=== PATIENT | female | born 1975 | race Caucasian/White ===

== ENCOUNTER 2025-06-09 09:12 | Emergency (ER) | payer OTHER, SELFPAY ==
--- NOTE | ~2025-06-09 | US_ITS ---
Duplex Sonography of the right extremity: Indication: Pain Findings: Sagittal and transverse B-mode images as well as color-flow imaging were performed on the r ight femoral and popliteal veins. B-mode examination was done without and with compression in the tr ansverse plane. There is good visualization of the common femoral, proximal profunda femoral, superf icial femoral, greater saphenous, and popliteal veins. Normal flow was seen on color-flow imaging. N ormal compressibility was demonstrated. As well as calf veins are also patent. Impression: No evidence of deep vein thrombosis involving the right lower extremity. Reviewed, dictated and finalized at location M. Impression: No evidence of deep vein thrombosis involving the right lower extremity.
--- NOTE | ~2025-06-09 | CT_ITS ---
CT lumbar spine wo con Ordering provider: Sharmila Miles PA-C History: 50 years Female with . R sciatica, radiculopathy . Comparison: None. Technique: CT lumbar spine without contrast. Automated exposure control and iterative reconstruction technique were employed. The dose-length product was 1211.02 mGy-cm. FINDINGS: VERTEBRAE: Normal height and alignment. No subluxation or visible acute fracture. Sclerotic lesion se en in the right iliac bone. DISC SPACES: Narrowing of the disc L5-S1. Bilateral sacroiliitis. T12-L1: No stenosis. Bilateral facet joint disease. L1-L2: No stenosis. Bilateral facet joint disease. L2-L3: No stenosis. Bilateral facet joint disease. Mild diffuse disc bulge. L3-L4: No stenosis. Bilateral facet joint disease. Diffuse disc bulge with bilateral narrowing of the foramina and with compression. L4-L5: No spinal canal stenosis.Bilateral facet joint disease. Diffuse disc bulge with bilateral radha rowing of the foramina and nerve root compression. L5-S1: Severe spinal canal stenosis secondary to broad based disc bulge, facet arthropathy, posterio r osteophytes and ligamentum flavum hypertrophy. Bilateral facet joint disease. PARASPINOUS SOFT TISSUES: Normal aorta. IMPRESSION: Spinal canal stenosis at the level of L5-S1 with bilateral narrowing of the foramina and nerve root c ompression. Multilevel facet joint disease. Diffuse disc bulge at the level of L3-L4 and L4-L5 with bilateral narrowing of the foramina and nerve root compression. MRI is better for evaluation. Reviewed, dictated and finalized at location A. IMPRESSION: Spinal canal stenosis at the level of L5-S1 with bilateral narrowing of the for merry and nerve root compression. Multilevel facet joint disease. Diffuse disc bulge at the level of L3-L4 and L4-L5 with bilateral narrowing of the foramina and nerve root compression. MRI is better for evaluation.
[2025-06-09 09:17] VITALS: BP 157/87; PULSE 81; RESP 18; TEMP 36.7; O2SAT 96
--- NOTE | 2025-06-09 09:34 | ED_ITS ---
HPI - Back Pain/Injury General Chief Complaint: Back Pain/Injury Stated Complaint: BACK PAIN Time Seen by Provider: 06/09/25 09:15 Source: patient Mode of arrival: ambulatory Limitations: no limitations History of Present Illness HPI Narrative: Patient is a 50-year-old female who presents the ED with concern for sciatica pain. Patient reports having pain throughout her right lower back, radiating down posterior right lower extremity for the past several weeks. She notes history of previous sciatica in her left side several years ago which felt similar. Reports most of the pain currently is in her right posterior leg. She has been to the chiropractor several times, has been to urgent care and prescribed steroids, saw her PCP last week and was prescribed prednisone as well as meloxicam and a muscle relaxer. She has been taking these w/o improvement. States she was referred to physical therapy, but has not set this up yet. Reports difficulty ambulating due to the pain. Has only taken her steroid so far this morning. Denies numbness, saddle anesthesia, bowel or bladder incontinence, abdominal pain, dysuria, hematuria. Related Data Allergies Allergy/AdvReac Type Severity Reaction Status Date / Time NO KNOWN DRUG ALLERGIES Allergy Y Uncoded 06/09/25 09:22 (Class Allergy) Review of Systems Review of Systems: All systems reviewed & are unremarkable except as noted in HPI. All systems reviewed & are unremarkable except as noted in HPI and below Exam Narrative: GENERAL: Well appearing, morbidly obese with BMI 41.5, non-toxic, in no acute distress. HEAD: Normocephalic, atraumatic. RESPIRATORY: Airway patent, respirations nonlabored. Clear to auscultation bilaterally, no rales, rhonchi, wheezing. CARDIOVASCULAR: Regular rate and rhythm without murmurs, rubs, or gallops. ABDOMINAL: Soft, nontender, nondistended. Normoactive BS. MUSCULOSKELETAL: Moves all extremities. No gross deformities. No significant tenderness throughout midline lumbar spine, right SI region that I am able to reproduce. No significant reproducible tenderness throughout right calf. But positive straight leg raise on right past 45?. No swelling throughout right lower extremity. Sensation intact. SKIN: Warm, dry, normal color. NEURO: A&O X3. Speech clear. Cranial nerves II-XII grossly intact. Steady gait. No ataxic movements. PSYCHIATRIC: Appropriate mood and affect. Normal interaction. Course Vital Signs Vital signs: Vital Signs Temperature 98.0 F 06/09/25 09:17 Pulse Rate 81 06/09/25 09:17 Respiratory Rate 18 06/09/25 09:17 Blood Pressure 157/87 H 06/09/25 09:17 Pulse Oximetry 96 06/09/25 09:17 Oxygen Delivery Room Air 06/09/25 09:17 Temperature 98.0 F 06/09/25 09:17 Pulse Rate 63 06/09/25 12:36 Respiratory Rate 16 06/09/25 12:36 Blood Pressure 139/75 06/09/25 12:36 Pulse Oximetry 97 06/09/25 12:36 Oxygen Delivery Room Air 06/09/25 09:17 MDM - Back Pain/Injury MDM Narrative Medical decision making narrative: Patient presented to ED with several week history of right-sided sciatic pain, particularly throughout her right posterior leg. Vital signs are stable upon arrival. Has tried several modalities for pain without significant improvement. Patient is neurologically intact upon my examination. There is no evidence of cord compression or cauda equina. CT of lumbar spine showing spinal stenosis, particularly L5-S1 with bulging disc. Consistent with clinical picture. Venous Doppler ultrasound of right lower extremity was obtained and negative for DVT Patient reports she is driving herself from the emergency department. She does not have another ride. She was given Toradol and Tylenol in the ED with improvement of pain actually. Will prescribe a different muscle relaxer for home, as well as a few Bonifay for breakthrough pain. Advised to continue to follow-up with PCP, PT. Will refer to neurosurgery. Advised to call office to make appointment. Recommended patient continue pain medications as needed, gentle stretching/movements throughout the day. Given strict return precautions. She agrees w/ plan. Discharged in stable condition. Medical Records Attestation: I reviewed the patient's medical records. Imaging Data Attestation: I personally reviewed and interpreted this imaging study as follows: Radiologist's impression: ITS Impressions Venous Doppler Study 06/09/25 10:21 Impression: No evidence of deep vein thrombosis involving the right lower extremity. Lumbar Spine CT 06/09/25 11:39 IMPRESSION: Spinal canal stenosis at the level of L5-S1 with bilateral narrowing of the foramina and nerve root compression. Multilevel facet joint disease. Diffuse disc bulge at the level of L3-L4 and L4-L5 with bilateral narrowing of the foramina and nerve root compression. MRI is better for evaluation. Discharge Plan Discharge Clinical Impression: Lumbar radiculopathy Strain of lumbar region Qualifiers: Encounter type: initial encounter Qualified Code(s): S39.012A - Strain of muscle, fascia and tendon of lower back, initial encounter Patient Disposition: Home Condition: Stable Instructions: Antibiotic Form, Acute Low Back Pain (ED), Lumbar Radiculopathy (ED), Lower Back Exercises (ED) Additional Instructions: Continue Tylenol 1000 mg every 6 hours and Ibuprofen (or Aleve or Meloxicam) as needed for pain. Utilize Bonifay as needed for more severe pain. You may use ice/heat to area of pain. Take muscle relaxers as needed and prescribed. Recommend taking these at night as they may cause sedation. Do not drive, operate heavy machinery, drink alcohol while on muscle relaxers as this may cause further sedation. Follow-up with your primary care doctor, physical therapy, and neurosurgery for further evaluation. Contact office to make appointment. Return to the ED if you experience worsening or severe pain, recurrent injury, numbness in groin or legs, going to the bathroom without meaning to, unable to keep down food or drink, or any other symptoms of concern. Patient Language: Romanian Prescriptions: New hydrocodone-acetaminophen 5-325 mg tablet 1 tablet PO Q6H PRN (Reason: pain) Qty: 7 0RF methocarbamol 750 mg tablet 1,500 mg PO TID PRN (Reason: muscle spasm) Qty: 15 0RF Follow-up/Referrals: PHYSICIAN NOT ON STAFF,NONSTAFF [Non-Staff] - Marie Rodriguez MD [Physician] - (NEUROSURGERY) Time of Disposition: 12:23
[2025-06-09] MEDS: KETOROLAC (*BKC) 60 MG/2 ML VIAL IM (09:54)
[2025-06-09] MEDS: ACETAMINOPHEN 500 MG TABLET 1000 MG PO (09:55)
--- OUTSIDE RECORDS SUMMARY | 2025-06-09 10:17 | XMS_ITS | Referral Summary ---
Author Organization [facility] Virtual Care Address [address] [place] [phone] Phone Care Team Providers Care Driver Material Handler Name Role Phone Caren Stephens NP Primary Care Provider Encounters Date Type Department Care Team Description 06/02/2025 7:00 PM CDT Office Visit [facility] at [address] [phone] Katt Elias NP Acute back pain with sciatica, right (Primary Dx) from Last 3 Months Allergies No known active allergies Medications metoprolol tartrate (LOPRESSOR) 50 mg immediate release tablet Take 1 tablet (50 mg total) by mouth 2 (two) times a day Active irbesartan (AVAPRO) 150 mg tablet Take 1 tablet (150 mg total) by mouth nightly Active hydroCHLOROthia zide (HYDRODIURIL) 25 mg tablet Take 1 tablet (25 mg total) by mouth daily Active metFORMIN (GLUCOPHAGE) 1,000 mg tablet Take 1 tablet (1,000 mg total) by mouth 2 (two) times a day with meals Active rosuvastatin (CRESTOR) 5 mg tablet Take 1 tablet (5 mg total) by mouth daily Active Mounjaro 15 mg/0.5 mL pen injector injection INJECT 15MG UNDER THE SKIN WEEKLY 5 Active vitamin D3-vitamin K2 25 mcg (1,000 unit)-90 mcg tablet,disinteg rating Take 5,000 Units by mouth Active methylPREDNISol one (MEDROL DOSEPACK) 4 mg Dosepack Take as directed on package. 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 Gender Identity Not on file Sexual Orientation Not on file Last Filed Vital Signs Vital Sign Reading Time Taken Comments Blood Pressure 117/80 06/02/2025 6:58 PM CDT Pulse 74 06/02/2025 6:58 PM CDT Temperature 36.1 C (97 F) 06/02/2025 6:58 PM CDT Respiratory Rate 18 06/02/2025 6:58 PM CDT Oxygen Saturation 97% 06/02/2025 6:58 PM CDT Inhaled Oxygen Concentration - - Weight 119.6 kg (263 lb 9.6 oz) 06/02/2025 6:58 PM CDT Height 167.6 cm (5' 6) 06/02/2025 6:58 PM CDT Body Mass Index 42.55 06/02/2025 6:58 PM CDT Plan of Treatment Not on [place] [address] Care Teams Driver Material Handler Relationship Specialty Start Date End Date Caren Stephens NP [address] [place] [address] PCP - General Nurse Practitioner 06/02/25
--- OUTSIDE RECORDS SUMMARY | 2025-06-09 10:17 | XMS_ITS | Clinical Summary ---
Author Organization [facility] Virtual Care Address [address] [place] [phone] Phone Care Team Providers Care Software Licensing Executive Name Role Phone Caren Stephens NP Primary Care Provider Allergies No known active allergies Medications metoprolol [...] 25 Active Problems No known active problems Encounters Date Type Department Care Team Description 06/02/2025 7:00 PM CDT Office Visit [facility] Medical [facility] Care at [address] [phone] Katt Elisa, LORENA Acute back pain with sciatica, right (Primary Dx) from Last 3 Months Social History Tobacco Use Types Packs/Day Years Used Date Smoking Tobacco: Never Assessed Comments Unknown Sex and Gender Information Value Date Recorded Sex Assigned at Not on file 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 Gender Identity Not on file Sexual Orientation [...] 06/02/2025 6:58 PM CDT Plan of Treatment Health Maintenance Due Date Last Done Comments Breast Cancer Screening-Mammogram 1974 Cervical Cancer Screening 1974 Colon Cancer Screening-Colonoscopy 1974 Depression Screening 1974 Hepatitis C Screening 1974 DTaP/Tdap/Td Vaccine (1 - Tdap) 1985 Hepatitis B Screening 1992 Regular Well Visit/Exam 18-64 1992 Zoster Vaccine (1 of 2) 2024 Influenza Vaccine (#1) 2025 Pneumococcal vaccine <65 Aged Out No longer eligible based on patient's age to complete this topic Insurance [facility] CHOICE PLUS Care Teams Software Licensing Executive Relationship Specialty Start Date End Date Caren Stephens NP [address] [address] PCP - General Nurse Practitioner 06/02/25
--- OUTSIDE RECORDS SUMMARY | 2025-06-09 10:17 | XMS_ITS | Clinical Summary ---
Author Organization [facility] [employer] Address [address] [place] [address] Care Team Providers Care Health Professional Name Role Phone Unavailable Primary Care Provider Unavailabl e Source Comments [facility] [employer],non-owned Affiliates and Associated Physician Practices is amultiple site organization consisting of ambulatory clinics and hospital sitesin [place], [place], [place] and [place]. This disclosure is being madepursuant to the Care Everywhere program and may not contain all information available regarding this patient. Last updated 18.[employer] Allergies No known active allergies Medications * Be aware that medications may not be up to date on this document. Alwaysverify current medications with the patient. metoprolol succinate XL 24hr (TOPROL XL) 25 MG tablet Take 25 mg by mouth once daily. Active sertraline (ZOLOFT) 100 MG tablet Take 200 mg by mouth once daily 1 tablets Active irbesartan (AVAPRO) 150 MG tablet Take 150 mg by mouth once daily Active hydroCHLOROthia zide (HYDRODIURIL) 25 MG tablet Take 25 mg by mouth once daily Active ALPRAZolam (XANAX) 0.25 MG tablet Take 0.25 mg by mouth 3 times daily as needed for Anxiety Active norethindrone (ORTHO MICRONOR; NOR-QD; KORY; STEFANY; BLAIRE-BE; JESSICA; JOLIVETTE) 0.35 MG tablet Take 1 (one) tablet by mouth once daily 90 tablet 4 01/31/2021 Active ibuprofen (MOTRIN) 800 MG tablet Take 1 (one) tablet by mouth 3 times daily as needed for Pain 30 tablet 4 01/31/2021 Active Active Problems No known active problems Social History Tobacco Use Types Packs/Day Years Used Date Smoking Tobacco: Former Smokeless Tobacco: Never Comments:social smoker in he r 20's Alcohol Use Standard Drinks/Week Comments Yes 0 (1 standard drink = 0.6 oz pur e alcohol) couple drinks per month Comments No Sex and Gender Information Value Date Recorded Sex Assigned at Not on file Legal Sex Female 1:34 PM FINANCIAL SALES CONSULTANT Gender Identity Not on file Sexual Orientation Not on file Last Filed Vital Signs Vital Sign Reading Time Taken Comments Blood Pressure 124/82 12/29/2020 11:10 AM FINANCIAL SALES CONSULTANT Pulse 68 03/10/2019 6:29 PM CDT Temperature 36.7 C (98 F) 03/10/2019 6:29 PM CDT Respiratory Rate 16 03/10/2019 6:29 PM CDT Oxygen Saturation 96% 03/10/2019 6:29 PM CDT Inhaled Oxygen Concentration - - Weight 122.9 kg (271 lb) 12/29/2020 11:10 AM FINANCIAL SALES CONSULTANT Height 167.6 cm (5' 6) 03/10/2019 6:29 PM CDT Body Mass Index 43.74 03/10/2019 6:29 PM CDT Plan of Treatment Health Maintenance Due Date Last Done Comments COLOGUARD (AGES 45-75) - COL ON CA SCREENING 1974 COLON MONITORING 1974 COLONOSCOPY - COLON CA SCREENING 1974 CT COLONOGRAPHY - COLON CA SCREENING 1974 Colorectal Cancer Screening 1974 FIT - COLON CA SCREENING 1974 FLEX SIG - COLON CA SCREENING 1974 LIPID TESTING 1974 HIV SCREENING 1989 HEPATITIS C SCREENING 03/18/1992 DTAP/TDAP/TD VACCINES (1 - Tdap) 1993 HEPATITIS B VACCINE (1 of 3 - 19+ 3-dose series) 1993 MAMMOGRAM 01/17/2023 01/17/2021, 08/25/2016 PNEUMOCOCCAL VACCINE 50+ (1 of 1 - PCV) 2024 ZOSTER VACCINE (1 of 2) 2024 COVID-19 VACCINE (1 - 2023-2 5 season) 2024 DEPRESSION SCREENING 11/25/2024 INFLUENZA VACCINE (#1) 2025 08/25/2008 PAP with HPV 12/29/2025 12/29/2020 HIB VACCINE Aged Out No longer eligi ble based on patient's age to complete this topic HPV VACCINE Aged Out No longer eligi ble based on patient's age to complete this topic MENINGOCOCCAL (Group B) VACCINE SHARED DECISION-MAKING Aged Out No longer eligible based on patient's age to complete this topic MENINGOCOCCAL GROUPS A/C/Y/W VACCINE Aged Out No longer eligible b ased on patient's age to complete this topic Procedures Procedure Name Priority Date/Time Associated Diagnosis Comments MAMMO BILAT SCREENING Routine 01/17/2021 3:00 PM FINANCIAL SALES CONSULTANT Well woman exam HPV DETECTION HIGH RISK GORDY Routine 12/29/2020 1:39 PM FINANCIAL SALES CONSULTANT Well woman exam from Last 3 Months or Most Recently Relevant to Health Maintenance Results * MAMMO BILAT SCREENING (01/17/2021 3:00 PM FINANCIAL SALES CONSULTANT) Anatomical Region Laterality Modality Breast Bilateral Mammography 01/17/2021 3:30 PM FINANCIAL SALES CONSULTANT Impressions 01/17/2021 3:32 PM FINANCIAL SALES CONSULTANT No mammographic evidence of malignancy in either breast. ASSESSMENT: BIRADS Category 1: Negative mammogram. RECOMMENDATION: Bilateral screening mammogram in one year. Thank you for allowing us to participate in the care of your patient. [facility] Breast [facility] [place] utilizes [employer] as a reminder system to notify patients of their next recommended mammogram. *Reading Radiologist: Maye Canchola on 01/17/2021 at 3:32 PM Narrative 01/17/2021 3:32 PM FINANCIAL SALES CONSULTANT EXAMINATION: Digital screening mammogram. Low-dose full-field digital breast tomosynthesis examination was performed with synthetic 2D images and 3D acquisitions. Computer assisted detection was utilized. DATE: 01/17/2021 2:40 PM PRIOR: 08/25/2016. BREAST PARENCHYMAL DENSITY: There are scattered areas of fibroglandular density. RISK ASSESSMENT CALCULATION: Not offered due to COVID contact precautions. FINDINGS: No suspicious masses, areas of architectural distortion or microcalcifications are evident on synthetic 2D mammogram or tomosynthesis images. There has been no significant interval change since the prior examination. Mra Santa MD MAMMO ORDERABLES Fin al Result * HPV DETECTION HIGH RISK GORDY (12/29/2020 1:39 PM FINANCIAL SALES CONSULTANT) High Risk Human Papilloma Result Not detected Not detected 01/04/2021 8:03 AM FINANCIAL SALES CONSULTANT [facility] High Risk Human Papilloma Interp 01/04/2021 8:03 AM FINANCIAL SALES CONSULTANT [facility] Comment:High Risk Human Jey lloma Virus was Not Detected. Pathology/Cytolo gy MISCELLANEOUS SAMPLES / Unknown 12/29/2020 1:39 PM FINANCIAL SALES CONSULTANT 12/30/2020 12:04 PM FINANCIAL SALES CONSULTANT Narrative [facility] - 01/04/2021 8:03 AM FINANCIAL SALES CONSULTANT Nucleic acid isolated from the specimen was analyzed with a nucleic acid amplification test (FDA approved Gen-Probe HPV Assay) to detect high risk human papilloma virus (Types: 16, 18, 31, 33, 35, 39, 45, 51, 52, 56, 58, 59, 66, and 68). The reference range is Not Detected. Comment: These test results should not be used as the sole basis for clinical assessment and treatment of patients. These results should always be correlated with other available data (cytology, histology, and clinical information). Mar Santa MD LAB - MICROBIOLOGY O TJ Final Result Performing Organization Address City/State/[facility] Co de Phone Number [facility] [address] [place] [address], [facility] [phone] from Last 3 Months or Most Recently Relevant to Health Maintenance [place] [place] [address] [place] [id number] [facility]
[2025-06-09 12:36] VITALS: BP 139/75; PULSE 63; RESP 16; O2SAT 97
== END 2025-06-09 12:39 | disposition home or self-care (01) ==
PROVIDERS: Emergency Provider Physician Assistant
DX: M54.16 Radiculopathy, lumbar region (principal); S39.012A Strain of muscle, fascia and tendon of lower back, initial encounter; X58.XXXA Exposure to other specified factors, initial encounter
CPT/HCPCS: 72131; 93971; 96372; 99284; A9270; J1885